=== PATIENT | male | born 1980 | race Caucasian/White ===

== ENCOUNTER → 2024-03-16 | Outpatient (CLI) | payer OTHER ==
[2024-03-16 21:06] LABS: Bun/Creatinine Ratio 17.3 (12.0-20.0); Calcium, Blood 9.8 mg/dL (8.5-10.1); Creatinine, Blood 0.81 mg/dL (0.60-1.20)
[2024-03-19 09:26] LABS: ANA PATTERN Homogeneous; ANTINUCLEAR AB (ANA),HEP-2,IGG Detected (<1:80)
== END ==
LOC: LAB 20:02 → LAB SHORT 20:02
PROVIDERS: Hospitalist
DX: M25.50 Pain in unspecified joint (principal); I10 Essential (primary) hypertension
CPT/HCPCS: 80048; 85651; 86039; 86430

== ENCOUNTER 2024-06-09 12:57 | Emergency (ER) | payer OTHER ==
[~2024-06-09] VITALS: Ht 162.6 cm; Wt 70.3 kg
[2024-06-09 14:06] LABS: BASOPHILS ABSOLUTE AUTO 0.04 K/mm3 (0.00-0.23); BASOPHILS PERCENT AUTO 0 % (0-2); EOSINOPHILS PERCENT AUTO 0 % (0-6); Hematocrit 48.1 % (37.0-53.0); Hemoglobin 16.2 g/dL (13.5-17.5); IMMATURE GRAN ABSOLUTE AUTO 0.05 K/mm3 (0.00-0.10); IMMATURE GRAN PERCENT AUTO 0 % (0-1); LYMPHOCYTES ABSOLUTE AUTO 1.38 K/mm3 (0.84-5.20); LYMPHOCYTES PERCENT AUTO 11 % (21-46); MONOCYTES PERCENT AUTO 6 % (4-13); Mean Corpuscular HGB 30.6 pg (26.0-34.0); Mean Corpuscular HGB Conc 33.7 g/dL (31.5-36.5); Mean Corpuscular Volume 91 fL (80-100); Mean Platelet Volume 9.3 fL (9.1-12.4); NEUTROPHILS ABSOLUTE AUTO 10.45 K/mm3 (1.96-9.15); NEUTROPHILS PERCENT AUTO 83 % (41-73); Platelet Count 409 K/mm3 (150-400); RDW Coefficient Variation 13.1 % (11.7-14.2); RDW Standard Deviation 43.8 fL (35.1-46.3); Red Blood Cell Count 5.29 M/mm3 (4.30-5.90); White Blood Cell Count 12.62 K/mm3 (4.00-11.30)
[2024-06-09 14:24] LABS: Albumin, Blood 5.1 g/dL (3.4-5.0); Albumin/Globulin Ratio 1.2 (0.8-1.8); Bilirubin, Total 0.4 mg/dL (0.1-1.0); Bun/Creatinine Ratio 25.5 (12.0-20.0); Calcium, Blood 10.3 mg/dL (8.5-10.1); Creatinine, Blood 1.06 mg/dL (0.60-1.20); Globulin, Blood 4.2 g/dL (2.2-4.0); Potassium, Blood 4.8 mmol/L (3.5-5.5); Total Protein, Blood 9.3 g/dL (6.4-8.2)
[2024-06-09] MEDS ORDERED: Prinivil10 MG PO (14:56)
[2024-06-09] MEDS ORDERED: BUSP10 PO (14:57)
[2024-06-09] MEDS ORDERED: ESCI20 PO (14:57)
[2024-06-09] MEDS ORDERED: MELO7.5 PO (14:57)
[2024-06-09] MEDS ORDERED: Ondansetron HCl 2 MG / ML 2ML Vial IV ONE (15:05)
[2024-06-09] MEDS ORDERED: Lactated Ringer's 1,000 ML IV ONE (15:05)
[2024-06-09] MEDS ORDERED: ONDA4ODT MM (15:48)
[2024-06-09] MEDS ORDERED: PREG75 PO (16:24)
[2024-06-09] MEDS ORDERED: Pregabalin 75 MG Cap PO ONE (16:25)
== END 2024-06-09 16:30 | disposition home or self-care (01) ==
LOC: ER 12:57
PROVIDERS: Physician Assistant
DX: R11.10 Vomiting, unspecified (principal); F12.10 Cannabis abuse, uncomplicated; Z91.013 Allergy to seafood
CPT/HCPCS: 74018; 80053; 83690; 85025; 96360; 99284-25; A9270; J2405; J7120